=== PATIENT | female | born 1980 | race African-American/Black ===

== ENCOUNTER 2022-10-23 10:14 | Emergency (ER) | payer SELFPAY ==
[2022-10-23 12:00] LABS: Bacteria/HPF None Seen HPF (None Seen); Bilirubin Negative (Negative); Blood, Urine Trace (Negative); Clarity Clear (Clear); Glucose, Urine (Dipstick) Normal (Negative); Ketone, Urine Negative (Negative); Leukocyte Negative Leu/uL (Negative); Nitrite Negative (Negative); Protein, Urine (Dipstick) Negative (Neg-Trace); RBC/HPF 0-3 HPF (0-3); Specific Gravity, Urine 1.031 (1.002-1.036); Squamous Epithelial 0-3 HPF (0-3); WBC/HPF 0-3 HPF (0-3); pH, Urine 5.5 (5.0-9.0)
[2022-10-23 12:03] LABS: Pregnancy Test - Urine (BHCG) Negative (Negative)
[2022-10-23 12:04] LABS: Pregu Control Background? CLEAR/WHITE (CLR/WHITE); Pregu Control Bar Appear? YES (CONTROL BAR)
[2022-10-23] MEDS ORDERED: Ketorolac Tromethamine 30 MG/ML VIAL ONE (15:17)
== END 2022-10-23 15:42 | disposition home or self-care (01) ==
LOC: ERS 10:14
DX: M54.50 Low back pain, unspecified (principal); I10 Essential (primary) hypertension; E11.40 Type 2 diabetes mellitus with diabetic neuropathy, unspecified
CPT/HCPCS: 81003; 81015; 81025; 96372; 99283; J1885

== ENCOUNTER → 2024-09-09 | Emergency (ER) | payer MEDICAID, SELFPAY | LOC: ERS 17:19 | DX: Z53.21 Procedure and treatment not carried out due to patient leaving prior to being seen by health care provider (principal) ==